=== PATIENT | male | born 1950 | race Caucasian/White ===

== ENCOUNTER → 2016-04-10 | Outpatient (CLI) | payer OTHER ==
[~2016-04-10] MED LIST: CALC500C70 PO; CLC100 PO; CLOB-65 TOP; GEMF600T3 PO; LEUP30IN3 IM; OXYB5TAB74 PO; RAMI5CAP PO; SIMV40TA2 PO; VITA10004 PO
== END | disposition home or self-care (01) ==
LOC: C.LAB1850 09:49
PROVIDERS: ATTEND Urology
DX: C61 Malignant neoplasm of prostate (principal)

== ENCOUNTER → 2016-07-15 | Outpatient (CLI) | payer OTHER ==
[~2016-07-15] MED LIST changes: +DTR/5 PO; -OXYB5TAB74 PO
== END | disposition home or self-care (01) ==
LOC: C.LAB1850 08:41
PROVIDERS: ATTEND Urology
DX: C61 Malignant neoplasm of prostate (principal)

== ENCOUNTER → 2016-08-02 | Outpatient (CLI) | payer OTHER ==
[~2016-08-02] MED LIST changes: -CLC100 PO
[2016-08-02 09:58] LABS: BLOOD UREA NITROGEN 21 mg/dl (7-18)
== END | disposition home or self-care (01) ==
LOC: C.LAB1850 08:04
PROVIDERS: ATTEND Physician Assistant Medical
DX: C61 Malignant neoplasm of prostate (principal)

== ENCOUNTER → 2016-11-20 | Outpatient (CLI) | payer OTHER ==
[~2016-11-20] MED LIST changes: -DTR/5 PO; +OXYB5TAB74 PO
[2016-11-20 14:32] VITALS: BP 121/73; PULSE 72; TEMP 36.7; O2SAT 95
--- NOTE | 2016-11-20 15:27 | Radiation Oncology Follow-Up ---
Radiation Oncology Follow-Up Date of Visit Nov 20, 2016. Reason For Visit One-month follow-up and cancer survivorship care plan Radiation Completion Date 10/22/16 Diagnosis (1) Prostate cancer Status: Acute Onset Date: 11/16/2015 Location: both lobes of the prostate Histology Subtype: adenocarcinoma Stage: lll Permanent Comment: STAGING: Prostate, adenocarcinoma, annie 4 + 3, PSA 8.68, cT2, group IIA Prostate gland size by TRUS - 30 cc PSAD - 0.289 Status post robotic-assisted laparoscopic radical prostatectomy, bilateral pelvic lymph node dissection 01/09/2016 Stage pT3a pN0M0 Annie 4+3 with tertiary 5 Perineural invasion, extraprostatic extension, seminal vesicle invasion, and positive margins Rising postop PSA to 0.207 Initiation of androgen deprivation March 2016 Status post completion of salvage radiation therapy 10/22/2016. He received 7020 cGy Last Edited By: Kamla Pollock on Nov 01, 2016 13:06 History of Present Illness Mr. Urrutia is a 66-year-old gentleman who recently presented with an elevated PSA of 8.68 on 09/12/2015. His last PSA from our record system was 1.32 on 04/29/2001. The patient was referred by his primary care physician to Dr. Mejia who did recommend a transrectal ultrasound-guided biopsy. The patient underwent a transrectal ultrasoundguided biopsy on 11/16/2015 which revealed prostate cancer and 12/14 cores. Pathology revealed adenocarcinoma that was [place] 4+3 with perineural invasion (full pathology report below). At the time of his biopsy, he did have a transrectal ultrasound which did measures prostate gland at 30 mL. Subsequently, he did have a bone scan on November 27 2015 which showed no evidence of bony metastatic disease. He also did have a CT abdomen pelvis on 11/27/2015 which showed no evidence of pelvic lymphadenopathy. The patient was subsequently seen in consultation by Dr. Jostin Curran who discussed treatment options including radical prostatectomy or radiation therapy. We are now seeing the patient in consultation to discuss the role of radiation therapy. Overall, the patient is doing relatively well. He does not have significant urinary obstructive symptoms. His IPSS score today is 4/35. His EPIC QOL score is 3/60. He denies any history of TURP, inflammatory bowel disease. He denies any hematuria or any other concerning symptoms. The patient made decision to undergo prostatectomy. He had a robotic-assisted laparoscopic radical prostatectomy and bilateral pelvic lymph node dissection on 01/09/2016. This revealed adenocarcinoma. The Annie was 4+3 and tertiary 5. 80% of the prostate tissue submitted was involved by adenocarcinoma. There was extraprostatic extension, seminal vesicle invasion on the left, and positive margins. The margins involved were the right and left bladder base as well as the left apex and left posterior mid. There was perineural invasion. 10 lymph nodes were evaluated and all were negative for metastatic disease. Since his surgery he does have issues with urinary incontinence. He did have physical therapy and continues to do exercises at home. Following his surgery on 02/28/2016 the PSA was 0.137. On 02/08/2017 the PSA was 0.207. At that time androgen deprivation was initiated. He received a Lupron injection. His next PSA on 07/15/2016 was less than 0.010. He is to receive his next Lupron injection next . He was referred back to our office to discuss salvage radiation therapy. He completed an AUA score sheet and gave a score of 9. He completed and expanded prostate cancer index composite for clinical practice and gave a score of 9 of 12 in urinary incontinence symptoms. He gave a score of 3 of 12 in urinary irritation symptoms. He gave a score of 0 of 12 in bowel symptoms. He gave a score of 12 of 12 and sexual symptoms. He gave a score of 2 of 12 in hormonal vitality symptoms. His total was 26 of 60. He completed salvage radiation therapy 10/22/2016. He received 7020 cGy. Interim History He is doing well from urinary standpoint. His AUA score was 7. He completed expanded prostate cancer index composite for clinical practice and gave a score of 10 of 12 in urinary incontinence symptoms. He gave a score of 3 of 12 and urinary irritation symptoms. He gave a score of 0 of 12 in bowel symptoms. He gave a score of 12 of 12 in sexual symptoms. He gave a score of 2 of 12 in hormonal vitality symptoms. His total was 27 of 60. His main issue is the urinary incontinence. He has no control of the urine. We had discussed physical therapy. He stated that he had home physical therapy following a prostatectomy. He also has been taught Kegel exercises. He has been doing these on a regular pain basis. He also is aware that there is surgery that can be done in the future to help with the incontinence. Currently he is not in favor of surgery and would like to see if the incontinence improves over time. Allergies Coded Allergies: Glimepiride (Verified Allergy, Unknown, Optic migraines, 01/17/16) Rabeprazole (Verified Adverse Reaction, Mild, STOMACH ACHE, 01/17/16) Metformin (Verified Adverse Reaction, Unknown, STOMACH ACHE, 01/17/16) Home Medications Scheduled Calcium/Vitamin D (Os-Scooby 500 Plus D), 2 TAB PO DAILY Gemfibrozil (Lopid), 1 TAB PO HS Leuprolide Acetate (Lupron Depot), 30 MG IM UD Oxybutynin Chloride (Ditropan), 1 TAB PO BID Ramipril (Ramipril), 1 CAP PO QAM Simvastatin (Zocor), 40 MG PO QAM Vitamin E (Vitamin E), 1 CAP PO DAILY Scheduled PRN Clobetasol Propionate 0.05% (Temovate 0.05%), 1 APPLN TOP BID PRN for Affected Skin Folds Review of Systems Gastrointestinal: Symptoms: WNL Oral: Symptoms: No Problems Respiratory: Symptoms: WNL Urinary: Symptoms: Incontinence, Frequency Comments: I leak all the time Skin: Symptoms: No Problems Additional Notes: He completed a distress management report and answered "no" to all questions other than he has concerns about educational needs and sexual side effects. He did not answer "yes" to depression, fears, nervousness, or worry. Physical Exam Vital Signs Date Time Temp Pulse Resp B/P (MAP) Pulse Ox O2 Delivery O2 Flow Rate FiO2 11/20/16 14:32 36.7 72 20 121/73 95 Pain: Patient Pain Scale: 0 - 10 Initial Pain Intensity: 0.0 Fatigue: None General Appearance: no apparent distress Eyes: normal inspection, EOMI ENT: normal ENT inspection, hearing grossly normal Respiratory/Chest: lungs clear, no respiratory distress, no accessory muscle use Cardiovascular: regular rate, rhythm, no gallop, no murmur Abdomen: non tender, soft, no organomegaly Neurologic/Psychiatric: no motor/sensory deficits, alert, + depressed affect Skin: warm/dry Laboratory Studies Test 11/20/16 15:05 Assessment & Plan Plan: The patient is also seen today by Dr. Espino. The PSA was drawn and he'll be notified as to the results. He has a recheck point with Dr. Curran 2016. We reviewed his hormone suppression. He had a four-month Lupron injection on 08/08/2016. We discussed further physical therapy possibly having treatment at [facility] for [facility]. He'll continue to consider this and will discuss this further with Dr. Curran. He has completed 6 months of androgen deprivation which was the recommendation from our office. Any further injections would be at the discretion of Dr. Curran. We asked him to return to our office in 6 months. ADDENDUM: I agree with note created by Kamla Pollock PA-C. I reviewed the patient's chart and information with her. I have examined and evaluated the patient. I reviewed relevant clinical information and answered the patient's and /or family's questions. DIGITAL MARKETING INTERN Total Time In Follow-Up I spent 20 minutes speaking to the patient performing examination. I spent 15 minutes reviewing information and completeness note. AK I spent 15 minutes examining and counseling the patient. DIGITAL MARKETING INTERN Copy To Néstor Cunningham M.D.; Jostin Curran M.D.
== END | disposition home or self-care (01) ==
LOC: C.ONC 14:24
PROVIDERS: ATTEND Physician Assistant Medical
DX: Z08 Encounter for follow-up examination after completed treatment for malignant neoplasm (principal); Z92.3 Personal history of irradiation; Z85.46 Personal history of malignant neoplasm of prostate

== ENCOUNTER → 2016-11-21 | Outpatient (CLI) | payer OTHER ==
[2016-11-21 09:38] LABS: BASO % 0.5 %; BASO ABS # 0.02 K/uL (0-0.2); COMPLETE YES; EOS % 10.3 %; HEMATOCRIT 35.9 % (42-52); IG% 0.2 %; LYMPH ABS # 0.44 K/uL (1.2-3.4); MEAN CELL VOLUME 89.1 fL (80-100); MEAN CORPUSCULAR HEMOGLOBIN 30.8 pg (25-34); MEAN CORPUSCULAR HGB CONC 34.5 g/dl (32-36); MEAN PLATELET VOLUME 9.9 fL (7.4-10.4); MONO % 8.2 %; NEUT % 70.8 %; PLATELET COUNT 187 K/uL (130-400); RED BLOOD COUNT 4.03 M/uL (4.7-6.1); WHITE BLOOD COUNT 4.39 K/uL (4.8-10.8)
[2016-11-21 09:49] LABS: ALT/SGPT 18 U/L (12-78); BLOOD UREA NITROGEN 20 mg/dl (7-18); BUN/CREATININE RATIO 19.6 (10-20); CALCIUM 9.4 mg/dl (8.5-10.1); CARBON DIOXIDE 28 mmol/L (21-32); CHLORIDE 107 mmol/L (98-107); CHOLESTEROL 181 mg/dl (0-200); GLUCOSE 126 mg/dl (70-99); POTASSIUM 3.7 mmol/L (3.5-5.1); SODIUM 140 mmol/L (136-145); TRIGLYCERIDES 177 mg/dl (0-150); VERY LOW DENSITY LIPOPROT CALC 35 mg/dl
[2016-11-21 09:53] LABS: ALB/GLOB RATIO 0.9 (0.9-2); ALKALINE PHOSPHATASE 108 U/L (45-117); AST/SGOT 19 U/L (15-37); CHOLESTEROL/HDL RATIO 3.9; HDL CHOLESTEROL 46 mg/dl; LDL CHOLESTEROL CALCULATED 100 mg/dl
[2016-11-21 10:01] LABS: ESTIMATED AVERAGE GLUCOSE 126 mg/dl; HA1C FLAG Normal (Normal)
--- NOTE | 2016-11-26 09:41 | CODING QUERY MEDICAL NECESSITY ---
CQSUPPORTING DIAGNOSIS NEEDED A supporting diagnosis is required for the test/procedure performed on this patient in order for us to be reimbursed by the patient's insurance. Please provide a supporting diagnosis for the following test/procedure listed below next to the test name along with your signature. *If there is no additional diagnosis for this patient that would support the following test/procedure please document that below next to the test/procedure. Test(s)/Procedure(s) that require a supporting diagnosis: DOS 11/21/16 GLYCATED HEMOGLOBIN TEST LIPID TEST Provider Signature: Date: Thank you Marge Morrison Health Information Management Once completed, please kindly fax back to [phone] For questions please call [phone]
== END | disposition home or self-care (01) ==
LOC: C.LAB1850 08:30
PROVIDERS: ATTEND Internal Medicine
DX: Z87.19 Personal history of other diseases of the digestive system (principal); E11.9 Type 2 diabetes mellitus without complications; E78.5 Hyperlipidemia, unspecified

== ENCOUNTER → 2016-12-10 | Outpatient (CLI) | payer OTHER | END | disposition home or self-care (01) | LOC: C.LAB1850 11:49 | PROVIDERS: ATTEND Nurse Practitioner Family | DX: R30.9 Painful micturition, unspecified (principal) ==

== ENCOUNTER → 2016-12-17 | Outpatient (CLI) | payer OTHER | END | disposition home or self-care (01) | LOC: C.LAB1850 10:22 | PROVIDERS: ATTEND Urology | DX: C61 Malignant neoplasm of prostate (principal) ==

== ENCOUNTER → 2017-05-14 | Outpatient (CLI) | payer OTHER ==
[~2017-05-14] MED LIST changes: +DTR/5 PO; -OXYB5TAB74 PO
[2017-05-14 13:17] VITALS: BP 132/78; PULSE 72; TEMP 36.7; O2SAT 94
--- NOTE | 2017-05-14 14:01 | Radiation Oncology Follow-Up ---
Radiation Oncology Follow-Up Date of Visit May 14, 2017. Reason For Visit Follow up Diagnosis (1) Prostate cancer Status: Acute Onset Date: 11/16/2015 Permanent Comment: STAGING: Prostate, adenocarcinoma, annie 4 + 3, PSA 8.68, cT2, group IIA Prostate gland size by TRUS - 30 cc PSAD - 0.289 Status post robotic-assisted laparoscopic radical prostatectomy, bilateral pelvic lymph node dissection 01/09/2016 Stage pT3a pN0M0 Annie 4+3 with tertiary 5 Perineural invasion, extraprostatic extension, seminal vesicle invasion, and positive margins Rising postop PSA to 0.207 Initiation of androgen deprivation March 2016 Status post completion of salvage radiation therapy 10/22/2016. He received 7020 cGy Last Edited By: Kamla Pollock on Nov 01, 2016 13:06 Interim History Mr. Urrutia is a 66-year-old gentleman with locally advanced prostate cancer status post radical prostatectomy in December 2015. The patient had high risk pathologic features including perineural invasion, extraprostatic extension, seminal vesicle invasion, positive margins and a high Hazel score of 4+3 with tertiary 5. The patient's PSA sandrine to 0.207. The patient elected for salvage radiation therapy with short-term androgen deprivation therapy. The patient completed radiation therapy in September 2016. He completed androgen deprivation therapy in November 2016. The patient now presents for follow-up evaluation. In the interim, the patient has continued to follow with Dr. Jostin Curran from urology. He does continue to have severe urinary incontinence as well as urinary frequency. Dr. Curran is closely following him and has tried several different medications including meloxicam, most rec with minimal success. Dr. Curran has discussed with the patient the potential of seeing a reconstructive urologist to consider surgical options to improve his incontinence/frequency. At this point, the patient is reluctant to see another urologist for another surgical procedure. Otherwise, the patient denies any hematuria or blood per rectum. He has no other complaints. He no longer has any symptoms of androgen deprivation therapy including hot flashes. Allergies Coded Allergies: Glimepiride (Verified Allergy, Unknown, Optic migraines, 01/17/16) Rabeprazole (Verified Adverse Reaction, Mild, STOMACH ACHE, 01/17/16) Metformin (Verified Adverse Reaction, Unknown, STOMACH ACHE, 01/17/16) Home Medications Scheduled Calcium/Vitamin D (Os-Scooby 500 Plus D), 2 TAB PO DAILY Gemfibrozil (Lopid), 1 TAB PO HS Ramipril (Ramipril), 1 CAP PO QAM Simvastatin (Zocor), 40 MG PO QAM Vitamin E (Vitamin E), 1 CAP PO DAILY Scheduled PRN Clobetasol Propionate 0.05% (Temovate 0.05%), 1 APPLN TOP BID PRN for Affected Skin Folds Review of Systems Gastrointestinal: Symptoms: WNL Oral: Symptoms: No Problems Respiratory: Symptoms: WNL Urinary: Symptoms: Frequency Comments: nocturia every 2 hrs, and during the day , voids every hr or so, denies mary Skin: Symptoms: No Problems Physical Exam Vital Signs Date Time Temp Pulse Resp B/P (MAP) Pulse Ox O2 Delivery O2 Flow Rate FiO2 05/14/17 13:17 36.7 72 18 132/78 94 General Appearance: WD/WN, no apparent distress Eyes: normal inspection ENT: normal ENT inspection Neck: supple, no adenopathy Respiratory/Chest: chest non-tender, lungs clear, normal breath sounds, no respiratory distress, no accessory muscle use Cardiovascular: regular rate, rhythm Abdomen: normal bowel sounds, non tender, soft, no organomegaly Anal / Rectum: Deferred SAULO today. Extremities: normal range of motion Neurologic/Psychiatric: night supervisor II-XII nml as tested, alert, oriented x 3 Skin: normal color, warm/dry, no rash Pain Management Patient Reports Pain: No Side: Bilateral Patient Preferred Pain Scale: 0 - 10 Initial Pain Intensity: 0.0 Pain Management Plan Patient has no pain and requires no pain management plan. Laboratory Laboratory Results: were reviewed, and pertinent findings noted below Laboratory Comments: Next PSA scheduled on 05/25/[address] Curran. PSA December 17, 2016 < 0.010 Pathology Pathology Results: not applicable Imaging Imaging Studies: not applicable Assessment & Plan Assessment: Mr. Urrutia has no evidence of clinical recurrence of his prostate cancer. His next PSA is scheduled for May 25, 2017 which was ordered by Dr. Curran. He does continue to have symptoms including urinary incontinence and frequency which are currently being addressed by Dr. Curran. At this point, we will defer management of symptoms to urology. Dr. Curran has recommended consideration for the patient to be seen by a reconstructive urologist to discuss potential surgical options for reducing his incontinence which the patient has been reluctant to consider until now. Today, the patient does state he may be willing to eventually consider seeing a urologist and will discuss it with Dr. Curran at his next follow-up evaluation in May 2017. Plan: 1. Return to clinic in 1 year. 2. Continue close follow-up with urology. PSA scheduled for end of May 2017. 3. Continued follow-up with all other providers. 4. Patient and family encouraged to call us with any further questions or concerns. Total Time In Follow-Up I spent 20 minutes examining and counseling the patient. I spent 15 minutes completing this note. MEDICAID ANALYST Copy To Néstor Cunningham M.D.; Jostin Curran M.D.
== END | disposition home or self-care (01) ==
LOC: C.ONC 13:08
PROVIDERS: ATTEND Physician Assistant Medical
DX: Z08 Encounter for follow-up examination after completed treatment for malignant neoplasm (principal); Z92.3 Personal history of irradiation; Z85.46 Personal history of malignant neoplasm of prostate

== ENCOUNTER → 2017-05-23 | Outpatient (CLI) | payer OTHER ==
[~2017-05-23] MED LIST changes: -DTR/5 PO; -LEUP30IN3 IM
[2017-05-23 12:04] LABS: BASO % 0.3 %; BASO ABS # 0.02 K/uL (0-0.2); EOS % 7.9 %; EOS ABS # 0.48 K/uL (0-0.5); HEMATOCRIT 40.4 % (42-52); HEMOGLOBIN 13.8 g/dL (14.0-18.0); IG# 0.01 K/uL (0.00-0.02); LYMPH % 10.4 %; LYMPH ABS # 0.63 K/uL (1.2-3.4); MEAN CELL VOLUME 88.2 fL (80-100); MEAN CORPUSCULAR HEMOGLOBIN 30.1 pg (25-34); MEAN CORPUSCULAR HGB CONC 34.2 g/dl (32-36); MEAN PLATELET VOLUME 10.4 fL (7.4-10.4); MONO % 7.3 %; MONO ABS # 0.44 K/uL (0.11-0.59); NEUT % 73.9 %; NEUT ABS # 4.48 K/uL (1.4-6.5); PLATELET COUNT 219 K/uL (130-400); RED CELL DISTRIBUTION WIDTH CV 13.4 % (11.5-14.5); WHITE BLOOD COUNT 6.06 K/uL (4.8-10.8)
--- NOTE | 2017-05-30 13:46 | CODING QUERY MEDICAL NECESSITY ---
SUPPORTING DIAGNOSIS NEEDED A supporting diagnosis is required for the test/procedure performed on this patient in order for us to be reimbursed by the patient's insurance. Please provide a supporting diagnosis for the following test/procedure listed below next to the test name along with your signature. *If there is no additional diagnosis for this patient that would support the following test/procedure please document that below next to the test/procedure. Test(s)/Procedure(s) that require a supporting diagnosis: DOS: 05/23/17 * VITAMIN B12 DIAGNOSIS: Provider Signature: Date: Thank you Lulu [place] [employer] Information Management Once completed, please kindly fax back to [phone] For questions please call [phone]
== END | disposition home or self-care (01) ==
LOC: C.LAB1850 09:28
PROVIDERS: ATTEND Internal Medicine
DX: D64.9 Anemia, unspecified (principal); C61 Malignant neoplasm of prostate

== ENCOUNTER → 2017-06-17 | Outpatient (CLI) | payer OTHER | END | disposition home or self-care (01) | LOC: C.LAB1850 10:35 | PROVIDERS: ATTEND Urology | DX: C61 Malignant neoplasm of prostate (principal) ==